=== PATIENT | female | born 1990 | race Two or more races ===

== ENCOUNTER 2020-12-02 03:26 | Emergency (ER) | payer OTHER ==
[~2020-12-02] VITALS: Ht 157.5 cm; Wt 76.3 kg
[2020-12-02 03:30] VITALS: BP 133/38
[2020-12-02] MEDS ORDERED: DIAZEPAM 5 MG TABLET ONE (04:10)
[2020-12-02] MEDS ORDERED: ACETAMINOPHEN 500 MG TABLET ONE (04:10)
[2020-12-02] MEDS ORDERED: KETOROLAC 30 MG/1 ML ONE (04:10)
[2020-12-02] MEDS ORDERED: LIDODERM 5% PATCH TD ONE ×2 (04:10→04:30)
[2020-12-02] MEDS ORDERED: DIAZEPAM 5 MG TABLET PO ONE (04:30)
[2020-12-02] MEDS ORDERED: ACETAMINOPHEN 500 MG TABLET PO ONE (04:30)
[2020-12-02] MEDS ORDERED: KETOROLAC 30 MG/1 ML IM ONE (04:30)
== END 2020-12-02 05:29 | disposition home or self-care (01) ==
LOC: ED 05:19
DX: S39.012A Strain of muscle, fascia and tendon of lower back, initial encounter (principal); M54.42 Lumbago with sciatica, left side; X58.XXXA Exposure to other specified factors, initial encounter; Y93.89 Activity, other specified; Y92.89 Other specified places as the place of occurrence of the external cause; Y99.8 Other external cause status
CPT/HCPCS: 96372; 99284; J1885

== ENCOUNTER 2020-12-15 22:46 | Emergency (ER) | payer OTHER ==
[~2020-12-15] VITALS: Ht 157.5 cm; Wt 78.8 kg
--- NOTE | 2020-12-15 23:53 | NUR ---
TURNER MACHINE: CALLED FOR PT FOR IMAGING. PT NOT IN LOBBY AT THIS TIME.
--- NOTE | 2020-12-16 01:39 | NUR ---
CANE PACKER: PT WALKED BACK FROM LOBBY TO ROOM AT THIS TIME.
[2020-12-16] MEDS ORDERED: HYDROcodone/APAP 5/325 TABLET PO ONE (02:30)
[2020-12-16] MEDS ORDERED: DIAZEPAM 5 MG TABLET PO ONE (02:30)
[2020-12-16] MEDS ORDERED: DIAZEPAM 5 MG TABLET ONE (02:42)
[2020-12-16] MEDS ORDERED: HYDROcodone/APAP 5/325 TABLET ONE (02:43)
[2020-12-16 02:55] VITALS: BP 125/74
== END 2020-12-16 03:58 | disposition home or self-care (01) ==
LOC: ED 23:55
DX: M54.16 Radiculopathy, lumbar region (principal)
CPT/HCPCS: 72110; 99284; J7512